=== PATIENT | female | born 2000 | race African-American/Black ===

== ENCOUNTER 2021-05-19 05:02 | Emergency (ER) | payer OTHER, SELFPAY ==
[2021-05-19] VITALS (8 sets, daily range): BP systolic 142–202; BP diastolic 88–121; PULSE 53–70; RESP 13–20; TEMP 36.2; O2SAT 95–100
--- NOTE | ~2021-05-19 | CT_ITS ---
EXAMINATION: CT abdomen pelvis w con DATE: 05/19/2021 06:58 INDICATION: Epigastric abdominal pain. TECHNIQUE: Computed tomography (CT) of the abdomen and pelvis was performed with 100 mL Omnipaque 350 intravenous contrast. Automated exposure control and iterative reconstruction technique were employe d. The dose-length product was 290.36 mGy-cm. COMPARISON: None. FINDINGS: The visualized portions of the lung bases are clear without pneumonia or pleural effusion. The heart size is normal. No pericardial effusion. The liver, gallbladder, spleen, pancreas, adrenal glands, and left kidney are normal. There is a 16 mm peripelvic cyst in right kidney. There are no di lated loops of bowel. The appendix is normal. There are no pathologically enlarged lymph nodes. There is trace physiologic fluid in the pelvis. There is dextrocurvature of thoracic spine lumbar spine. IMPRESSION: 1. No etiology for the patient's symptoms. Reviewed, dictated and finalized at location A.
--- NOTE | 2021-05-19 05:17 | ED.GENADULT ---
HPI - General Adult General Chief complaint: Chest Pain <DO Zak England Last Filed: 05/19/21 06:40> Stated complaint: acid reflux, vomiting <DO Zak England Filed: 05/19/21 06:40> Time Seen by Provider: 05/19/21 05:07 <DO Zak England Last Filed: 05/19/21 06:40> Source: RN notes reviewed <Torito Devine DO Last Filed: 05/19/21 06:40> History of Present Illness HPI narrative: Patient presents to emergency department from home for abdominal pain. Patient states that she has had some issues with epigastric abdominal pain for several weeks that is worse over the past 2 days. States that yesterday evening she gone to [facility] for pain in the epigastric region and had been diagnosed with gastric reflux and discharge states she had no medication at that time symptoms worsen when she home pain is located in the epigastric right upper quadrant left upper quadrant radiates up in the lower midsternal chest described as burning in nature and associated nausea vomiting. Patient denies any fevers or chills shortness of breath diarrhea or any other symptoms <DO Zak England Last Filed: 05/19/21 06:40> Related Data Allergies/adverse reactions: Allergies Allergy/AdvReac Type Severity Reaction Status Date / Time No Known Allergies Allergy Verified 05/19/21 05:06 <DO Zak England Filed: 05/19/21 06:40> Review of Systems Review of Systems: Narrative: Gen.: Denies fevers or chills ENT: Denies congestion Respiratory: Denies shortness of breath or cough CV: Denies chest pain or palpitations GI: See HPI denies burning, urgency, frequency or hematuria Musculoskeletal: Denies back pain or muscle pain Neuro: Denies numbness, tingling, weakness or focal weakness Skin: Denies rash Except as documented, all other systems reviewed and negative <DO Zak England Last Filed: 05/19/21 06:40> PMFSH Past Medical History Medical History: Medical History (Updated 05/19/21 @ 11:17 by Yolette Teague MD) Patient denies significant medical history <DO Zak England Filed: 05/19/21 06:40> Social History Social History: Social History (Updated 05/19/21 @ 06:40 by Torito Devine DO) Smoking status: Never smoker Gender identity (if verbalized by the patient): Female Sexual Orientation (if Verbalized by the Patient): Straight or Heterosexual <Torito Devine DO - Last Filed: 05/19/21 06:40> Exam Narrative: Exam Narrative: APPEARANCE: No acute distress, nontoxic, resting in bed HEENT: Normocephalic, atraumatic, OMM RESPIRATORY: No respiratory distress, clear to auscultation bilaterally with no rhonchi wheezing or rales CARDIOVASCULAR: RRR s murmur ABDOMINAL: Soft nondistended tender palpation epigastric and right upper quadrant and left upper quadrant no tenderness in right lower quadrant left lower quadrant no rebound or guarding MUSCULOSKELETAl: Moves all extremities. No clubbing, cyanosis or edema. NEURO: Awake and alert. Following commands, speech normal, no focal deficits SKIN:: Warm, dry. Normal Color PSYCHIATRIC: Normal affect/mood <Torito Devine DO - Last Filed: 05/19/21 06:40> Course Reevaluation(s) Reevaluation #1: Rechecked. Discussed with patient about labs, imaging results. Instructed patient to stop using marijuana, as this is likely contributing to her symptoms. <Yolette Teague MD - Last Filed: 05/19/21 11:19> Date: 05/19/21 <Yolette Teague MD - Last Filed: 05/19/21 11:19> Time: 11:00 <Yolette Teague MD - Last Filed: 05/19/21 11:19> Vital Signs Vital signs: Vital Signs Temperature 36.2 C L 05/19/21 05:03 Pulse Rate 70 05/19/21 05:03 Respiratory Rate 16 05/19/21 05:03 Pulse Oximetry 100 05/19/21 05:03 Temperature 36.2 C L 05/19/21 05:03 Pulse Rate 53 L 05/19/21 10:44 Respiratory Rate 20 05/19/21 10:44 Blood Pressure 145/105 H 05/19
--- NOTE | 2021-05-19 05:20 | ECG_ITS ---
Measurements Intervals [place] Rate: 54 P: 57 [place]: 135 QRS: 45 QRSD: 78 T: 44 QT: 424 QTc: 404 Interpretive Statements SINUS BRADYCARDIA BASELINE ARTIFACT- I, II, III, AVR, AVL, AVF BORDERLINE ECG Electronically Signed On 05-19-2021 7:11:31 CDT by Scott Gutierrez D.O.
--- NOTE | 2021-05-19 05:28 | PC.NURSE ---
pt ambulated to bathroom w/ steady gait
[2021-05-19] MEDS: PANTOPRAZOLE SODIUM IV 40 MG VIAL IV PUSH (05:42)
[2021-05-19] MEDS: SODIUM CHLORIDE 0.9% IV 1,000 ML 999 ML IV CONT (05:42)
[2021-05-19 06:11] LABS: Basophils Absolute Auto 0.1 K/mm3 (0.0-0.1); Eosinophils Absolute Auto 0.1 K/mm3 (0-0.3); Eosinophils Percent Auto 0.7 % (0-4.4); Hematocrit 39.5 % (37.0-47.0); Hemoglobin 13.9 g/dL (12.0-15.0); Immature Granulocyte Absolute 0.02 K/mm3 (0.00-0.031); Immature Granulocyte Percent A 0.3 % (0-0.5); Lymphocytes Absolute Auto 2.35 K/mm3 (0.9-3.2); Lymphocytes Percent Auto 33.2 % (18.3-44.2); Mean Corpuscular HGB Conc 35.2 g/dl (32-36); Mean Corpuscular Hemoglobin 32.9 pg (26-34); Mean Corpuscular Volume 93.4 fl (80-100); Mean Platelet Volume 10.5 fl (7.4-10.4); Monocytes Absolute Auto 0.6 K/mm3 (0.1-0.6); Monocytes Percent Auto 8.2 % (2.6-8.5); Neutrophils Percent Auto 56.6 % (45.5-73.1); Platelet Count Result 312 k/mm3 (150-375); Red Blood Count 4.23 M/mm3 (4.2-5.4); Red Cell Distribution Width 11.4 % (11.5-14.5); White Blood Count 7.1 K/mm3 (4.5-10.0)
[2021-05-19] MEDS: ONDANSETRON INJ 4 MG/2 ML VIAL IV PUSH (06:13)
[2021-05-19 06:16] LABS: Add Urine Microscopic? YES; Appearance Urine Clear (Clear); Bacteria Urine Trace /hpf; Bilirubin Urine Negative (Negative); Blood Urine Negative (Negative); Color Urine Yellow (Yellow); Glucose Urine UA Negative (Negative); Ketones Urine 1+ mg/dL (Negative); Leukocyte Esterase Ur 2+ LEU/UL (Negative); Mucus Urine Rare /lpf; Nitrate Urine Negative (Negative); Protein Urine Negative (Negative); RBC Urine 0-2 /hpf (0-2); Specific Grav Ur 1.011 (1.001-1.035); Squamous Epithelial Cell Urine Few /hpf (Few); Urobilinogen Urine Negative mg/dL (<2.0); WBC Urine 21-30 /hpf
[2021-05-19 06:31] LABS: Alanine Aminotransferase 14 U/L (4-35); Albumin Level 4.9 g/dL (3.5-5.1); Alkaline Phosphatase 52 U/L (38-126); Anion Gap 13 mmol/L (8-16); Aspartate Amino Transferase 29 U/L (14-36); Bilirubin,Total 0.8 mg/dL (0.2-1.3); Blood Urea Nitrogen 9 mg/dL (7-17); Carbon Dioxide 25 mmol/L (22-30); Chloride 99 mmol/L (98-107); Estimated CRCL calculation 86 ml/min; Estimated Glomerular Filt Rate > 60; Glucose 96 mg/dL (65-105); Lipase 15 U/L (23-300); Potassium 3.3 mmol/L (3.4-5.0); Sodium 137 mmol/L (137-145)
[2021-05-19] MEDS: MORPHINE SULFATE (*CRX) 4 MG/ML INJ IV PUSH (06:40)
--- NOTE | 2021-05-19 06:40 | PC.NURSE ---
pt to CT via stretcher at this time
--- NOTE | 2021-05-19 08:51 | PC.NURSE ---
called lab talked to Radhika added on a Trop 1 at [id number]
[2021-05-19 09:10] LABS: Amphetamine Screen Urine Negative (Negative); Barbiturate Screen Urine Negative (Negative); Benzodiazepines Screen Urine Negative (Negative); Cannabinoid Screen Urine Positive (Negative); Cocaine Screen Urine Negative (Negative); Methadone Screen Urine Negative (Negative); Opiate Screen Urine Negative (Negative); Phencyclidine Screen Urine Negative (Negative)
[2021-05-19 09:45] LABS: Troponin I < 0.012 ng/mL (0.000-0.034)
[2021-05-19] MEDS: POTASSIUM CHLORIDE 20 MEQ TABLET PO ×2 (11:07→11:08)
== END 2021-05-19 11:42 | disposition home or self-care (01) ==
PROVIDERS: Emergency Medicine; Emergency Provider Emergency Medicine
DX: R10.13 Epigastric pain (principal); R07.9 Chest pain, unspecified; I10 Essential (primary) hypertension; R11.15 Cyclical vomiting syndrome unrelated to migraine; R00.1 Bradycardia, unspecified
CPT/HCPCS: 36415; 74177; 80053; 80307; 81001; 81025; 83690; 84484; 85025; 87086; 93005; 96361; 96365; 96375; 99284; A9270; C9113; J0131; J2270; J2405; J7030; Q9967

== ENCOUNTER 2021-11-15 20:10 | Emergency (ER) | payer OTHER, SELFPAY ==
--- NOTE | ~2021-11-15 | CT_ITS ---
EXAMINATION: CT abdomen pelvis w con EXAM DATE: 11/15/2021 23:30 INDICATION: Abdominal pain. Emesis. History of gastritis. TECHNIQUE: Spiral CT of the abdomen and pelvis was performed following intravenous injection of 100 m L Omnipaque 350, coronal and sagittal images of the abdomen and pelvis were reviewed. The dose-lengt h product (DLP) for this examination was 254.03 mGy-cm. The exposure was tailored according to patie nt size (auto mA exposure control), and iterative reconstruction (ASIR) was used as additional dose r eduction technique. Comparison is made to prior examination from . FINDINGS: The liver, spleen, adrenal glands and pancreas are unremarkable. Gallbladder is unremarkab le. No biliary obstruction. Portal and splenic veins are patent. Kidneys enhance symmetrically. T here is no hydronephrosis. The uterus is unremarkable. The bladder is unremarkable. There is no retroperitoneal or pelvic lymphadenopathy. There are no findings to suggest appendicitis. Distal esophageal edema. The stomach and small bowel are unremarkable. There is colonic fluid, correlate for diarrhea. No free intraperitoneal gas. T he heart is normal in size. There are no pericardial or pleural effusions. The lung bases are unrem arkable. The bones are unremarkable. IMPRESSION: Distal esophageal edema and colonic fluid. Consider gastroenteritis, esophagitis, diarrh ea. Reviewed, dictated and finalized at location G. COORDINATOR IMPRESSION: Distal esophageal edema and colonic fluid. Consider gastroenteriti s, esophagitis, diarrhea.
--- NOTE | 2021-11-15 20:39 | ED.GENADULT ---
HPI - General Adult General Chief complaint: Abdominal Pain Stated complaint: Abd pain, n/v Time Seen by Provider: 11/15/21 20:19 History of Present Illness HPI narrative: Patient 21-year-old female presents the emergency department with chief complaint of abdominal pain. The patient states the pain began earlier this morning and reports that she had nausea and vomiting and reports he is unable to get comfortable in any position. The patient reports has had diarrhea with this reports no prior surgical history on her abdomen Related Data Allergies Allergy/AdvReac Type Severity Reaction Status Date / Time No Known Allergies Allergy Verified 11/15/21 21:30 Review of Systems Review of Systems: A 10 system review of systems was completed on the patient and is negative except for what is stated in the HPI. Nursing and ancillary documentation was reviewed. PMFSH Past Medical History Medical History Patient denies significant medical history Social History Social History Smoking status: Never smoker Gender identity (if verbalized by the patient): Female Sexual Orientation (if Verbalized by the Patient): Straight or Heterosexual Exam Narrative: GENERAL: Well-appearing, well-nourished, appears acutely uncomfortable moving around on the stretcher flipping her legs over the stretcher. HEAD: Normocephalic, atraumatic. EYES: PERRLA and EOMI. ENT: Nares clear, no rhinorrhea or epistaxis. Mucous membranes moist. NECK: Supple. CHEST: Clear to auscultation. No respiratory distress. HEART: Regular rate and rhythm. No murmur heard. Normal peripheral pulses. ABDOMEN: Soft, diffuse tenderness, nondistended, normal active bowel sounds. EXTREMITIES: Normal range of motion. No edema. SKIN: Warm, dry, no rash. NEURO: No focal deficits. Alert and oriented x3. PSYCH: Normal mood and affect. Course Vital Signs Vital signs: Vital Signs Pulse Rate 101 H 11/15/21 21:41 Respiratory Rate 20 11/15/21 21:41 Blood Pressure 166/104 H 11/15/21 21:41 Pulse Oximetry 100 11/15/21 21:41 Pulse Rate 96 11/15/21 23:01 Respiratory Rate 16 11/15/21 23:01 Blood Pressure 142/94 H 11/15/21 23:01 Pulse Oximetry 100 11/15/21 23:01 Medical Decision Making Vital Signs Vital Signs: Vital Signs Pulse Rate 101 H 11/15/21 21:41 Respiratory Rate 20 11/15/21 21:41 Blood Pressure 166/104 H 11/15/21 21:41 Pulse Oximetry 100 11/15/21 21:41 Pulse Rate 96 11/15/21 23:01 Respiratory Rate 16 11/15/21 23:01 Blood Pressure 142/94 H 11/15/21 23:01 Pulse Oximetry 100 11/15/21 23:01 Lab Data Result diagrams: 11/15/21 21:27 11/15/21 21:27 Labs: Lab Results 11/15/21 11/15/21 11/15/21 Range/Units 21:27 21:27 22:58 WBC 16.8 H (4.5-10.0) K/mm3 RBC 4.20 (4.2-5.4) M/mm3 Hgb 13.4 (12.0-15.0) g/dL Hct 39.9 (37.0-47.0) % MCV 95.0 (80-100) fl MCH 31.9 (26-34) pg MCHC 33.6 (32-36) g/dl RDW 13.8 (11.5-14.5) % Plt Count 317 (150-375) k/mm3 MPV 11.0 H (7.4-10.4) fl Immature Gran % (Auto) 0.6 H (0-0.5) % Neut % (Auto) 86.9 H (45.5-73.1) % Lymph % (Auto) 8.1 L (18.3-44.2) % [place] % (Auto) 4.0 (2.6-8.5) % Eos % (Auto) 0.1 (0-4.4) % Baso % (Auto) 0.3 (0.2-1.2) % Lymph # (Auto) 1.37 (0.9-3.2) K/mm3 [place] # (Auto) 0.7 H (0.1-0.6) K/mm3 Eos # (Auto) 0.0 (0-0.3) K/mm3 Baso # (Auto) 0.1 (0.0-0.1) K/mm3 Abs Immat Gran (auto) 0.10 H (0.00-0.031) K/mm3 Absolute Neuts (auto) 14.6 H (1.3-6.7) K/mm3 Absolute Nucleated RBC 0.0 (0.0-0.012) K/mm3 Nucleated RBC % 0.0 (0.0-0.2) % Sodium 141 (137-145) mmol/L Potassium 4.0 (3.4-5.0) mmol/L Chloride 106 (98-107) mmol/L Carbon Dioxide 16 L (22-30) mmol/L Anion Gap 19 H (8-16) mmol/L
[2021-11-15] MEDS: SODIUM CHLORIDE 0.9% IV 1,000 ML 999 ML IV CONT (21:29)
[2021-11-15] MEDS: PROCHLORPERAZINE EDISYLATE 10 MG/2 ML VIAL IV PUSH (21:31)
[2021-11-15] MEDS: diphenhydrAMINE HCl INJ 50 MG/ML VIAL IV PUSH (21:34)
[2021-11-15] MEDS: MORPHINE SULFATE (*CRX) 4 MG/ML INJ IV PUSH (21:36)
[2021-11-15 21:41] VITALS: BP 166/104; PULSE 101; RESP 20; O2SAT 100
[2021-11-15 21:49] LABS: Basophils Absolute Auto 0.1 K/mm3 (0.0-0.1); Basophils Percent Auto 0.3 % (0.2-1.2); Eosinophils Percent Auto 0.1 % (0-4.4); Hematocrit 39.9 % (37.0-47.0); Hemoglobin 13.4 g/dL (12.0-15.0); Immature Granulocyte Percent A 0.6 % (0-0.5); Lymphocytes Absolute Auto 1.37 K/mm3 (0.9-3.2); Lymphocytes Percent Auto 8.1 % (18.3-44.2); Mean Corpuscular HGB Conc 33.6 g/dl (32-36); Mean Corpuscular Hemoglobin 31.9 pg (26-34); Monocytes Absolute Auto 0.7 K/mm3 (0.1-0.6); Neutrophils Absolute Auto 14.6 K/mm3 (1.3-6.7); Neutrophils Percent Auto 86.9 % (45.5-73.1); Platelet Count Result 317 k/mm3 (150-375); Red Cell Distribution Width 13.8 % (11.5-14.5); White Blood Count 16.8 K/mm3 (4.5-10.0)
[2021-11-15 22:00] LABS: Alanine Aminotransferase 20 U/L (4-35); Albumin Level 5.3 g/dL (3.5-5.1); Alkaline Phosphatase 59 U/L (38-126); Anion Gap 19 mmol/L (8-16); Aspartate Amino Transferase 33 U/L (14-36); Bilirubin,Total 1.1 mg/dL (0.2-1.3); Blood Urea Nitrogen 16 mg/dL (7-17); Calcium 10.2 mg/dL (8.4-10.2); Carbon Dioxide 16 mmol/L (22-30); Chloride 106 mmol/L (98-107); Estimated CRCL calculation 89 ml/min; Estimated Glomerular Filt Rate > 60; Glucose 140 mg/dL (65-110); Lipase 29 U/L (23-300); Sodium 141 mmol/L (137-145)
[2021-11-15 23:01] VITALS: BP 142/94; PULSE 96; RESP 16; O2SAT 100
[2021-11-15 23:18] LABS: Add Urine Microscopic? YES; Appearance Urine Clear (Clear); Bilirubin Urine Negative (Negative); Blood Urine Negative (Negative); Color Urine Yellow (Yellow); Glucose Urine UA Negative (Negative); Ketones Urine 2+ mg/dL (Negative); Leukocyte Esterase Ur 1+ LEU/UL (Negative); Mucus Urine Heavy /lpf; Nitrate Urine Negative (Negative); Protein Urine Negative (Negative); Specific Grav Ur 1.025 (1.001-1.035); Squamous Epithelial Cell Urine Many /hpf (Few); Urobilinogen Urine Negative mg/dL (<2.0); WBC Urine 16-20 /hpf
[2021-11-16 00:15] VITALS: BP 151/107; PULSE 77; RESP 18; O2SAT 100
== END 2021-11-16 00:20 | disposition home or self-care (01) ==
PROVIDERS: Emergency Provider Emergency Medicine
DX: K52.9 Noninfective gastroenteritis and colitis, unspecified (principal); K29.00 Acute gastritis without bleeding
CPT/HCPCS: 36415; 74177; 80053; 81001; 81025; 83690; 85025; 87086; 87088; 96361; 96374; 96375; 99284; J0780; J1200; J2270; J7030; Q9967

== ENCOUNTER 2024-02-08 18:34 | Emergency (ER) | payer OTHER, SELFPAY ==
[2024-02-08 18:38] VITALS: BP 138/106; PULSE 110; RESP 19; TEMP 36.8; O2SAT 99
== END 2024-02-08 19:00 | disposition left against medical advice (07) ==
LOC: ANHED 22:52
DX: R10.9 Unspecified abdominal pain (principal)
CPT/HCPCS: 99199